=== PATIENT | male | born 1965 | race American Indian/Alaskan Native ===

== ENCOUNTER 2017-02-22 09:10 | Day surgery (SDC) | payer MEDICARE ==
[2017-02-22 09:36] VITALS: BMI 34.4
[2017-02-22] MEDS ORDERED: Midazolam 2 MG/2 ML VIAL ONE (09:52)
[2017-02-22] MEDS ORDERED: Propofol 10 mg/ml Inj (20 ML) ONE (09:52)
[2017-02-22] MEDS ORDERED: Lactated Ringer's 1,000 ML IV SCH (11:00)
[2017-02-23 16:03] VITALS: BP 133/80; PULSE 62; RESP 17; TEMP 97.5; O2SAT 99
== END 2017-02-22 12:32 | disposition home or self-care (01) ==
LOC: ENDO 09:10
PROVIDERS: ATTEND Internal Medicine Gastroenterology
DX: K25.9 Gastric ulcer, unspecified as acute or chronic, without hemorrhage or perforation (principal); K63.5 Polyp of colon; K29.50 Unspecified chronic gastritis without bleeding; K44.9 Diaphragmatic hernia without obstruction or gangrene; K20.9 Esophagitis, unspecified; K64.8 Other hemorrhoids; R63.4 Abnormal weight loss; Z80.8 Family history of malignant neoplasm of other organs or systems
CPT/HCPCS: 43239; 45390; 88305; 88342; J2250; J2704; J7040; J7120

== ENCOUNTER 2018-01-13 07:24 | Day surgery (SDC) | payer MEDICARE ==
[2018-01-02 13:39] VITALS: BMI 29.3
[2018-01-13] MEDS ORDERED: Propofol 10 mg/ml Inj (20 ML) ONE (08:47)
[2018-01-13] MEDS ORDERED: Lactated Ringer's 1,000 ML IV SCH (09:00)
[2018-01-13 10:10] VITALS: PULSE 63; RESP 14; TEMP 98.3; O2SAT 99
[2018-01-13 13:04] VITALS: BP 124/74
== END 2018-01-13 11:45 | disposition home or self-care (01) ==
LOC: ENDO 07:24
PROVIDERS: ATTEND Internal Medicine Gastroenterology
DX: K25.9 Gastric ulcer, unspecified as acute or chronic, without hemorrhage or perforation (principal); K29.50 Unspecified chronic gastritis without bleeding; K31.89 Other diseases of stomach and duodenum; I10 Essential (primary) hypertension; Z88.0 Allergy status to penicillin
CPT/HCPCS: 43239; 88305; 88342; J2001; J2704; J3010; J7040; J7120

== ENCOUNTER 2019-01-23 07:19 | Outpatient (CLI) | payer MEDICARE | END 2019-01-23 07:20 | disposition home or self-care (01) | LOC: LAB 07:19 ==